=== PATIENT | female | born 1935 | race Caucasian/White ===

== ENCOUNTER 2016-08-03 05:13 | Inpatient (IN) ==
[2016-08-03] MEDS ORDERED: NS 1,000 ML IV ONE (05:18)
[2016-08-03] MEDS ORDERED: ZOFRAN IV ONE (05:18)
[2016-08-03] MEDS ORDERED: DILAUDID IV ONE (05:18)
--- NOTE | 2016-08-03 05:53 | PROVIDER DOCUMENTATION ---
HPI-General Adult - General Chief Complaint: Extremity Injury Stated Complaint: left hip injury/possible fx Time Seen by Provider: 08/03/16 05:25 Source: EMS Unable to obtain history due to:: altered Allergies/Adverse Reactions: Patient Allergies Allergy/AdvReac Type Severity Reaction Status Date / Time codeine Allergy RASH Verified 07/31/16 22:47 donepezil HCl * Allergy Unknown Verified 07/31/16 22:47 [From Aricept] gatifloxacin [From Tequin] Allergy Unknown Verified 07/31/16 22:47 Latex, Natural Rubber Allergy Unknown Verified 07/31/16 22:47 metformin Allergy DIARRHEA Verified 07/31/16 22:47 Sulfa (Sulfonamide Allergy Unknown Verified 07/31/16 22:47 Antibiotics) Home Medications: Home Medication List Medication Instructions Recorded Confirmed Last Taken Type Beclomethasone Dipr 80 Mcg INH 1 puff INH BID #1 inhaler 07/29/16 08/03/1608/02 Rx [Qvar 80 Microgm Inhaler] Divalproex [Depakote Sprinkle] 125 mg PO QHS #30 capsule 07/29/16 08/03/1608/02 Rx Docusate Sodium [Colace Liquid] 100 mg PO DAILY #30 udc 07/29/16 08/03/16 Rx Glipizide 10 mg PO BID #60 tablet 07/29/16 08/03/16 08/02/16 Rx Lorazepam [Ativan] 0.25 mg PO TID@0700,1300,1900 #45 07/29/16 08/03/16 08/02/16 Rx tablet Melatonin 5 mg PO QHS #30 tablet 07/29/16 08/03/16 08/02/16 Rx Memantine [Namenda] 5 mg PO DAILY #30 tablet 07/29/16 08/03/16 08/02/16 Rx Olanzapine Rapdis [Zyprexa Zydis] 2.5 mg PO QHS #30 tablet 07/29/16 08/03/16 Rx - History of Present Illness -Gen Adult Location of Pain/Injury: reports: lower extremity (fell at [facility] hurting left hip) Pain Radiation: reports: legs (lower) Quality of Pain: reports: none Severity: reports: mild Onset/Duration: reports: unsure Timing: reports: still present Context/Activities at Onset: reports: light activity Modifying Factors: improves with: nothing Associated Symptoms: reports: denies symptoms Similar Symptoms Previously?: Yes (fell 4 days ago) Recently seen or treated by another doctor?: Yes (treated 4 days ago for fall) HPI Comments: fell at [facility] hours ago. Alzheimers dementia Review of Systems - Adult - REVIEW OF SYSTEMS - ADULT ROS:: limited per condition Constitutional: reports: no symptoms reported Eyes: reports: no symptoms reported Ears, Nose, Mouth & Throat: reports: no symptoms reported Cardiovascular: reports: no symptoms reported Respiratory: reports: no symptoms reported Gastrointestinal: reports: no symptoms reported Genitourinary: reports: no symptoms reported Musculoskeletal: reports: no symptoms reported Integumentary: reports: no symptoms reported Neurological: reports: no symptoms reported (history of severe Alzheimers) Psychiatric: reports: no symptoms reported, see HPI Endocrine: reports: no symptoms reported Hematologic/Lymphatic: reports: no symptoms reported Allergic/Immunologic: reports: no symptoms reported All Other Systems: Reviewed and Negative Past History - Adult - PAST MEDICAL HISTORY-ADULT Review of Records: reports: Old Records Reviewed, Nursing Assessment Review, Medications Reviewed, Social history reviewed & non-contributory. Major Childhood Illnesses: reports: denies history Cardiovascular: reports: denies history Respiratory: reports: denies history Gastrointestinal: reports: denies history Obstetrical/Gynecological: reports: denies history Genitourinary: reports: denies history Musculoskeletal: reports: denies history Neurological: reports: denies history Endocrine/Immune: reports: Diabetes Other Conditions: reports: denies history - IMMUNIZATION STATUS Childhood Immunizations: See Nurse Assessment Flu Vaccine: See Nurse Assessment - FAMILY HISTORY Family History: reviewed, not pertinent Physical Exam-General - PHYSICAL EXAM-ADULT Initial Vital Signs Reviewed: Yes - CONSTITUTIONAL General Appearance: appears well - EYES Eyes: PERRL/EOMI - HEAD, EARS, NOSE, MOUTH & THROAT HENMT: normocephalic/atraumatic - NECK Neck: non-tender - RESPIRATORY Respiratory: chest non-tender - CARDIOVASCULAR Cardiovascular: normal peripheral pulses - GASTROINTESTINAL (ABDOMEN) Abdominal Exam: normal bowel sounds - LYMPHATIC Lymphatic: no adenopathy - MUSCULOSKELETAL Back Exam: other (deformity of the left hip with severe pain upon inversion of everted left foot) Extremity: normal range of motion - SKIN Integumentary: normal color - NEUROLOGIC Neurologic: meat molder II-XII nml as tested - PSYCHIATRIC Psych/Mental Status: disoriented x 3, depressed affect (Alzheimers) Progress - PLAN OF CARE/RESULTS Progress/Plan/Lab Results: Vital Signs - 8 hr 08/03/16 05:19 Temperature 98.3 F Pulse Rate 77 Respiratory Rate 16 Blood Pressure 152/71 O2 Sat by Pulse Oximetry 100 Orders Category Date Time Status Sen Care ROUTINE Care 08/03/16 05:19 Active Sne Cath Insertion ORDERED Care 08/03/16 05:41 Active CHEST-PORTABLE [RAD] Stat Exams 08/03/16 05:19 Taken XRAY PELVIS W/HIP 2-3VW LT [RAD] Stat Exams 08/03/16 05:31 Ordered CBC WITH DIFF [HEME] Stat Lab 08/03/16 05:20 Uncollected CMP [COMPREHENSIVE METABOLIC PANEL] [CHEM] Stat Lab 08/03/16 05:20 Uncollected UA NIMS W/REFLEX CULT [URINALYSIS] Stat Lab 08/03/16 05:20 Uncollected 0.9% Sodium Chloride Inj [Ns] 1,000 ml Med 08/03/16 05:18 Active IV 999 mls/hr Hydromorphone [Dilaudid] Med 08/03/16 05:18 Discontinued 1 mg IV NOW ONE Ondansetron [Zofran] Med 08/03/16 05:18 Discontinued 4 mg IV NOW ONE EKG [EKG] Stat Ther 08/03/16 05:21 Ordered Result Diagrams: 08/03/16 05:56 08/03/16 05:56 Departure - Departure Time of Disposition Decision: 06:56 DIAGNOSIS: Hip fracture, left Disposition: ADMITTED INPATIENT 09 Certified Medical Emergency: Emergent Condition: Stable Referrals and Follow-Ups: None,PCP [Primary Care Provider] - Attestation - Physician/ TARYN Attestation Patient care was provided by Advanced Practice Provider:: Yes Advanced Practice Provider documentation review:: The Mid-level provider documentation, treatment plan and medical decision making was reviewed by the physician who agrees with all treatment and medical decision making by the MLP. The physician spent face to face time with patient:: Yes Advanced Practice Provider documentation review:: The physician spent face to face time with this patient and agrees with all MLP documentation, treatment, and medical decision making by the MLP. See provider notes for further information.
[2016-08-03 06:09] LABS: MANUAL DIFF NEEDED? NO
[2016-08-03 06:15] LABS: EOS# 0.06 X1000 (0.0-0.7); EOS% 0.9 % (0.0-10.0); MCV 82.3 FL (81-99)
[2016-08-03 06:26] LABS: BASO% 0.9 % (0.0-0.8); HEMATOCRIT 35.8 % (37.0-47.0); HEMOGLOBIN 11.7 g/dL (12.0-16.0); LYMPH# 0.91 X1000 (1.2-3.4); LYMPH% 13.4 % (20.5-51.1); MCH 26.9 PG (27-31); MCHC 32.7 g/dL (33-37); MONO% 7.3 % (1.7-9.3); MPV 11.7 FL (7.4-10.4); NEUT% 77.5 % (42.2-75.2); PLT 199 X1000 (130-400); RBC 4.35 XMIL (4.2-5.4)
[2016-08-03 06:27] LABS: URINE CULTURE NEEDED? NO; URINE MICRO REVIEW NEEDED? NO; URINE SOURCE CATH
--- NOTE | 2016-08-03 06:37 | EKG Report ---
Test Performed on : 08/03/2016 05:39:21 AM Test Reason : PREOP Blood Pressure : / mmHG Vent. Rate : 077 BPM Atrial Rate : 077 BPM P-R Int : 146 ms QRS Dur : 074 ms QT Int : 364 ms P-R-T Axes : 091 -26 -04 degrees QTc Int : 411 ms Sinus rhythm. with premature supraventricular complexes. Septal infarct , age undetermined Abnormal ECG When compared with ECG of 24-JUN-2016 19:25, premature supraventricular complexes. are now present Septal infarct is now present T wave inversion now evident in Inferior leads Unconfirmed Result
[2016-08-03 06:39] LABS: BILIRUBIN URINE NEGATIVE (NEGATIVE); BLOOD URINE TRACE (NEGATIVE); COLOR YELLOW; GLUCOSE URINE 100 mg/dL (NEGATIVE); LEUKOCYTES URINE NEGATIVE (NEGATIVE); NITRITE URINE NEGATIVE (NEGATIVE); PH URINE 5.5; PROTEIN URINE TRACE mg/dL (NEGATIVE); SP GRAVITY URINE 1.024; TURBIDITY URINE CLEAR (CLEAR); UROBILINOGEN URINE NORMAL (NORMAL)
[2016-08-03 06:41] LABS: UR EPITHELIAL CELLS <10 /HPF (<10); URINE BACTERIA NEGATIVE /HPF; URINE RBC <10 /HPF (<10); URINE WBC <10 /HPF (<10)
[2016-08-03 06:44] LABS: AGAP 11; ALBUMIN 3.6 g/dL (3.5-5.0); ALKALINE PHOSPHATASE 70 U/L (32-104); BUN 18 mg/dL (8-22); CHLORIDE 104 mmol/L (98-107); COSMO 291; GOT 17 U/L (10-30); GPT 11 U/L (10-36); POTASSIUM 4.6 mmol/L (3.5-5.1); SODIUM 142 mmol/L (136-145); TCO2 27 mmol/L (25-35); TOTAL BILIRUBIN 0.37 mg/dL (0.20-1.00); TOTAL PROTEIN 6.9 g/dL (6.3-8.3)
--- NOTE | 2016-08-03 08:30 | Diag Imaging Result Document ---
PROCEDURE NAME: CHEST-PORTABLE - 08/03/2016 PORTABLE CHEST: COMPARISON: 07/31/2016. FINDINGS: The lungs are well expanded. The heart is not enlarged. The vessels are not distended. No pneumonia. No pleural effusions identified. I believe there is a granuloma in the lower right lung. There has been prior surgery to the lower neck. IMPRESSION: Stable chest.
--- NOTE | 2016-08-03 08:31 | Diag Imaging Result Document ---
PROCEDURE NAME: XRAY PELVIS W/HIP 2-3VW LT - 08/03/2016 PELVIS AND LEFT HIP, THREE VIEWS: FINDINGS: There is an intertrochanteric fracture to the left femur. The femoral head remains within its acetabulum. The femoral shaft is rotated and superiorly placed. IMPRESSION: Intertrochanteric fracture to the left hip.
[2016-08-03] MEDS ORDERED: SODIUM CHLORIDE 0.9% INJ PRN (08:33)
[2016-08-03] MEDS ORDERED: ZOFRAN IV PRN ×2 (08:33→19:27)
[2016-08-03] MEDS ORDERED: PHENERGAN IV PRN (08:33)
[2016-08-03] MEDS ORDERED: TYLENOL PO PRN (08:33)
[2016-08-03 08:52] LABS: INR 1.18; PROTIME 12.5 Seconds (9.2-11.7); PTT 23.6 Seconds (22.0-36.0)
[2016-08-03] MEDS ORDERED: COLACE LIQUID PO SCH (09:00)
[2016-08-03] MEDS: QVAR 80 MICROGM INHALER INH SCH ×2 (09:00→19:52)
[2016-08-03] MEDS ORDERED: DILAUDID IV PRN (12:32)
[2016-08-03] MEDS: NAMENDA PO SCH (12:36)
[2016-08-03] MEDS: NS 1,000 ML IV SCH ×3 (12:36→22:47)
[2016-08-03] MEDS: PRILOSEC PO SCH (12:37)
--- NOTE | 2016-08-03 13:23 | HISTORY AND PHYSICAL ---
This is an 81-year-old, who [place] [facility] [place] She has dementia for the last 6 years and then recently I think went to [facility]. She has fallen a couple times and at this time fell and has severe intertrochanteric hip fracture on the left. I saw where I put her in June of this year. Hemoglobin was down to 11, hematocrit was 36. She came in from a fall at that time and hit her head, arm and leg. The left elbow showed a little bit of fat pad sign. CT of the head was normal at that time. PAST MEDICAL HISTORY: 1. Diabetes mellitus type 2. 2. Dementia with severe sundowning. 3. Vitamin D deficiency. ALLERGIES: 1. Aricept. 2. Codeine. 3. Metformin. 4. Sulfa. 5. Tequin. 6. Other allergies to latex and natural rubber. FAMILY HISTORY: Her had dementia as well. SOCIAL HISTORY: Negative for alcohol or tobacco. REVIEW OF SYSTEMS: She has been at [facility] recently. It is a struggle to get her to eat and no sign of any definite pain. She has not been walking much or being very active since she got out of [place]. Before she went to [place] she was walking around and ambulating. PHYSICAL EXAMINATION: VITAL SIGNS: Temperature 98.3 degrees, pulse 77, respirations 16, blood pressure 123/53, pupils are equal and round. CVP is less than 6 cm. LUNGS: Clear in all lung stafford. CARDIOVASCULAR: Regular rate without murmur or S3. ABDOMEN: Soft. SKIN: Warm and dry. PHYSICAL EXAMINATION: VITAL SIGNS: Weight 100 pounds. Height 5 feet 4 inches. LUNGS: Are clear in all lung stafford. CARDIOVASCULAR: Regular rhythm and rate without murmur or S3. Monitor shows sinus rhythm. ABDOMEN: Soft. SKIN: Is warm and dry. LABORATORY: White blood cell count 6810, hematocrit 35, platelet count 199,000, sodium 142, potassium 4.6, chloride 104, bicarb 27, BUN 18, creatinine 0.8, liver functions unremarkable. Albumin 3.6, urinalysis unremarkable. MEDICATIONS AT HOME: 1. She was taking Qvar inhaler 80 mcg 1 puff b.i.d. 2. Depakote 125 mg at bedtime. 3. Docusate sodium 100 mg daily. 4. Glipizide 10 mg b.i.d. 5. Lorazepam 0.25 mg t.i.d. 6. Melatonin 5 mg at bedtime. 7. Namenda 5 mg daily. 8. Zyprexa 2.5 mg at bedtime. ASSESSMENT AND PLAN: 1. Left intertrochanteric hip fracture. This appears to be a severe break. Dr. Herrera consulted. I think we are going to have to probably do some fixation just for pain control. Will discuss with Dr. Herrera. I have discussed with family and the son and I think there is a potential for surgery. We will discuss with Dr. Herrera. 2. Diabetes mellitus type 2. We will check sugars. I am going to hold her hypoglycemics and we will monitor blood sugars. 3. Dementia with . 4. Looks like a poor protein calorie intake and so we will watch this as well with general nutrition. She has a Sen catheter in. LABORATORY: White count 6810, hematocrit 35, platelet count 199,000, sodium 142, potassium 4.6, chloride 104, bicarb 27, BUN 18, creatinine 0.8, blood sugar was 212. Liver enzymes AST 17, ALT 11, alkaline phosphatase was 70, albumin 3.6. cc: Frank Tran MD
[2016-08-03] MEDS: ATIVAN PO SCH ×2 (13:27→22:46)
[2016-08-03] MEDS ORDERED: CLAVE SECONDARY SET 11953 ONE (15:37)
[2016-08-03] MEDS ORDERED: KEFZOL 1 GM/D5W 1 GM/50 ML IVPB ONE (15:37)
[2016-08-03] MEDS ORDERED: FENTANYL ONE (18:02)
[2016-08-03] MEDS ORDERED: DIPRIVAN 1% ONE (18:03)
--- NOTE | 2016-08-03 18:25 | CONSULTATION ---
DATE OF CONSULTATION: 08/03/2016 CHIEF COMPLAINT: Left hip pain. HISTORY OF PRESENT ILLNESS: Ms. Pierce is an 81-year-old female who is experiencing left hip pain status post fall at a [facility] this morning. She was brought to the Emergency Room for evaluation, where radiographic findings revealed a left intertrochanteric fracture, and we were consulted for further evaluation. ALLERGIES: Codeine, donepezil, gatifloxacin, latex, metformin, and sulfa. PAST MEDICAL HISTORY: History was difficult to obtain from the patient because she was not very responsive, but family reports she has Alzheimer's dementia. SOCIAL HISTORY: The patient is a resident of a [facility]. CURRENT MEDICATIONS: 1. Beclomethasone 80 mcg inhaler one puff inhaled b.i.d. 2. Depakote 125 mg p.o. at bedtime. 3. Colace 100 mg p.o. daily. 4. Glipizide 10 mg p.o. b.i.d. 5. Lorazepam 0.25 mg p.o. t.i.d. 6. Melatonin 5 mg p.o. at bedtime. 7. Namenda 5 mg p.o. daily. 8. Zyprexa 2.5 mg p.o. at bedtime REVIEW OF SYSTEMS: It was difficult to obtain history from the patient, but a 10-point review of systems was reviewed with family members and all was negative except for what is present in the HPI. PHYSICAL EXAMINATION: General: The patient is resting comfortably at bedside but is unable to answer all questions fully. HEENT: Head is normocephalic. Nares are patent. Throat without exudate. Neck: Supple. Heart: Regular rate and rhythm. Lungs: Clear to auscultation bilaterally. Abdomen: Round. It is nontender. Neurological: She discerns soft touch to the affected extremities. Gross motor function is intact. Musculoskeletal: Left hip: She does have some deformity of the left hip. I do not appreciate any ecchymosis. Her leg appears to be externally rotated. Neurovascular status is intact with good peripheral pulses. IMPRESSION: Left intertrochanteric hip fracture. PLAN: Left long trochanteric fixation nail. The risks and benefits of surgery were explained to the patient and to family, including risk of anesthesia; ; bleeding; infection; damage to tendons, ligaments, nerves, blood vessels. Possibility of bleeding, blood clots, and other imponderables were discussed with the patient and her family, and she wishes to proceed with operative management at this time. Dictated by MARIA DEL CARMEN Campbell for iSlvano Churchill MD cc: MARIA DEL CARMEN Campbell MD
[2016-08-03] MEDS ORDERED: HALDOL IV PRN (19:27)
[2016-08-03] MEDS ORDERED: OXY IR PO PRN (19:27)
[2016-08-03] MEDS ORDERED: MILK OF MAGNESIA PO PRN (19:27)
--- NOTE | 2016-08-03 20:26 | OPERATIVE NOTE ---
PROCEDURE DATE: 08/03/2016 PREOPERATIVE DIAGNOSIS: Left intertrochanteric hip fracture. POSTOP DIAGNOSIS: Left intertrochanteric hip fracture. PROCEDURE PERFORMED: Left trochanteric fixation nail fixation of the hip. SURGEON: Natan Herrera MD. CRANKSHAFT STRAIGHTENER: Domo Gallardo. ANESTHESIA: General. COMPLICATION: None. PROCEDURE IN DETAIL: 81-year-old female presents for intertrochanteric fixation of the left hip. Risks, benefits and no guarantees were noted and she is willing to proceed. She was taken the operating room and satisfactory anesthesia obtained. She is transferred to the fracture table and the left hip prepped and draped in usual sterile fashion. A time-out was taken to confirm operative site, procedure, and patient. An incision was made along the lateral aspect of the thigh roughly 1 inch above the lesser trochanter and dissection carried down to the tip of the trochanter. Under multiplanar image guidance, a guide pin was placed through the tip of the trochanter and down the intramedullary canal. The Rydal table was used to place just gentle longitudinal traction and internal rotation to reduce the hip near anatomically. Over the guidewire an entry reamer was used and then a ball-tip guidewire inserted down the shaft. The shaft was reamed with a 12 mm reamer. A Synthes TFN 340 left nail was then inserted over the guidewire and guidewire removed. With the fracture reduced an accessory lateral portal was made and the helical blade advanced through fracture. This was initially placed with a guidewire and confirmation of the guidewire placement with the C-arm verified prior to placement of a 90 mm helical blade. After placement of this, the leg was ensured for proper rotation roughly 5 degrees to 10 degrees of external rotation and a distal interlocking screw placed through the dynamic slot using the C-arm as perfect [place] technique. Additional lateral incision made for placement of the screw and a 44 length screw placed. The C-arm was used to verify accurate fracture reduction and hardware placement. The wounds were irrigated and closed in layers with 2-0 Vicryl and skin jaye. Sterile dressings completed the closure and the patient was recovered from anesthesia and transferred to the recovery room in stable condition. No intraoperative complications were noted. Instrument count and sponge count was correct at the time of closure. cc: Bruno Herrera MD
[2016-08-03] MEDS: DEPAKOTE SPRINKLE PO SCH (22:45)
[2016-08-03] MEDS: COLACE LIQUID PO SCH (22:46)
[2016-08-03] MEDS: TYLENOL PO SCH (22:46)
[2016-08-03] MEDS: MELATONIN PO SCH (22:47)
[2016-08-03] MEDS: MORPHINE IV PRN (22:47)
[2016-08-03] MEDS: ZYPREXA ZYDIS PO SCH (22:47)
[2016-08-04] MEDS: KEFZOL 1 GM/D5W 1 GM/50 ML IVPB IV SCH ×2 (00:19→08:53)
[2016-08-04] MEDS: TYLENOL PO SCH ×3 (06:08→20:42)
[2016-08-04] MEDS: ATIVAN PO SCH ×3 (06:08→20:42)
[2016-08-04] MEDS: MORPHINE IV PRN ×5 (07:28→22:38)
[2016-08-04] MEDS: QVAR 80 MICROGM INHALER INH SCH ×2 (07:37→19:35)
[2016-08-04] MEDS: FERROUS SULFATE PO SCH (08:53)
[2016-08-04] MEDS: NAMENDA PO SCH (08:53)
[2016-08-04] MEDS: PRILOSEC PO SCH (08:53)
[2016-08-04] MEDS: NS 1,000 ML IV SCH ×2 (08:58→19:05)
[2016-08-04] MEDS: PERIDEX MT SCH ×2 (09:00→20:41)
[2016-08-04] MEDS ORDERED: NEO-SYNEPHRINE ONE (09:17)
[2016-08-04] MEDS ORDERED: ANESTHESIA PB SET 88 IN 5742 ONE (09:17)
[2016-08-04] MEDS ORDERED: SODIUM CHLORIDE 0.9% 10 ML ONE (09:17)
[2016-08-04] MEDS ORDERED: LR 1,000 ML ONE (09:17)
--- NOTE | 2016-08-04 10:10 | PROGRESS NOTE ---
DATE: 08/04/2016 SUBJECTIVE: Ms. Pierce is an 81-year-old, , elderly female who is resting comfortably in bed, although does complain of some left hip pain. She does have confusion secondary to her dementia. No other complaints. She has not eaten her breakfast this morning. May need assistance with that. She has had surgery of the left hip. OBJECTIVE: Vital Signs: Temperature 98.4 degrees, heart rate 72, respiratory rate 16, blood pressure 135/55, O2 saturation 99% on 2 L nasal cannula. General: Ms. Pierce is an 81-year-old, elderly female in no acute distress. Cardiovascular: S1, S2. Regular rate and rhythm. No rubs, gallops, or murmurs. Pulmonary: Clear to auscultate bilateral breath sounds. No accessory muscle use or work of breathing noted. GI: Soft, nontender, nondistended. Positive bowel sounds x4. Laboratory Data: None for today. New orders for tomorrow. ASSESSMENT AND PLAN: 1. Left intertrochanteric hip fracture, now status post left trochanteric fixation, nail fixation of the hip by Dr. Herrera. Tolerated surgery well. Will continue with physical therapy. 2. Diabetes mellitus type 2. Pattern blood glucoses, sliding scale insulin. 3. Dementia, stable. 4. Protein calorie malnutrition. She has a diet ordered. She will likely need assistance with this. 5. Disposition. Will need rehabilitation. 6. Resuscitation status, ps-izy-[id number] level 1. 7. She has been a resident of [facility] in the past and most recently [facility]. Dictated by RHIANNON Ray for Frank Tran MD cc: RHIANNON Ray MD
[2016-08-04 10:15] LABS: MANUAL DIFF NEEDED? NO
[2016-08-04 10:39] LABS: BASO% 0.5 % (0.0-0.8); HEMOGLOBIN 9.1 g/dL (12.0-16.0); LYMPH# 0.91 X1000 (1.2-3.4); LYMPH% 15.4 % (20.5-51.1); MCH 27.2 PG (27-31); MCHC 32.5 g/dL (33-37); MCV 83.8 FL (81-99); MONO% 15.2 % (1.7-9.3); MPV 10.8 FL (7.4-10.4); NEUT% 68.9 % (42.2-75.2); PLT 159 X1000 (130-400); RBC 3.34 XMIL (4.2-5.4)
[2016-08-04 11:01] LABS: AGAP 11; ALBUMIN 3.2 g/dL (3.5-5.0); ALKALINE PHOSPHATASE 61 U/L (32-104); BUN 13 mg/dL (8-22); CALCIUM 8.5 mg/dL (8.8-10.2); CHLORIDE 103 mmol/L (98-107); COSMO 289; GOT 23 U/L (10-30); GPT 12 U/L (10-36); MAGNESIUM 1.5 mg/dL (1.5-2.7); POTASSIUM 4.6 mmol/L (3.5-5.1); SODIUM 141 mmol/L (136-145); TCO2 27 mmol/L (25-35); TOTAL BILIRUBIN 0.54 mg/dL (0.20-1.00)
[2016-08-04] MEDS: HUMULIN R SUBQ SCH ×3 (11:32→20:43)
[2016-08-04] MEDS: ZYPREXA ZYDIS PO SCH (20:42)
[2016-08-04] MEDS: DEPAKOTE SPRINKLE PO SCH (20:42)
[2016-08-04] MEDS: MELATONIN PO SCH (20:42)
[2016-08-04] MEDS: COLACE LIQUID PO SCH (20:47)
[2016-08-05] MEDS: TYLENOL PO SCH ×3 (04:12→21:14)
[2016-08-05] MEDS: HUMULIN R SUBQ SCH ×4 (06:37→21:19)
[2016-08-05] MEDS: MORPHINE IV PRN ×2 (08:07→10:15)
[2016-08-05] MEDS: NS 1,000 ML IV SCH ×2 (09:12→21:15)
[2016-08-05] MEDS: QVAR 80 MICROGM INHALER INH SCH ×2 (09:25→19:20)
[2016-08-05] MEDS: PERIDEX MT SCH ×2 (10:22→21:14)
[2016-08-05] MEDS: NAMENDA PO SCH (10:22)
[2016-08-05] MEDS: ATIVAN PO SCH ×3 (10:26→21:15)
[2016-08-05] MEDS: FERROUS SULFATE PO SCH (10:26)
[2016-08-05] MEDS: PRILOSEC PO SCH (10:27)
--- NOTE | 2016-08-05 10:35 | PROGRESS NOTE ---
DATE: 08/05/2016 SUBJECTIVE: Ms. Pierce says she is very tired and she just wants to sleep. She remains afebrile. PHYSICAL EXAMINATION: Vital Signs: Temperature 98.2 degrees, pulse 90, respirations 17, blood pressure 123/67. HEENT: The pupils were equal. Lungs: Clear in all lung stafford. Cardiovascular Examination: Regular rhythm and rate. Abdomen: Soft. Skin: Is warm and dry. Is and Os: Urine output was close to 1500 mL. LAB: Reviewed from yesterday. Hematocrit was 28 and hemoglobin 9.1. Today, hematocrit 25, hemoglobin 8. Blood sugars 264, 79, 133, 128. ASSESSMENT AND PLAN: 1. Left intertrochanteric hip fracture, now status post a left trochanteric nail fixation per Dr. Herrera. Tolerated surgery well. Continue her physical therapy. 2. Diabetes mellitus type 2. Follow pattern sugars. 3. History of dementia. 4. Protein calorie malnutrition. Encourage oral intake. 5. Discharge planning. We will ask social service to help and decide on what we want to do. cc: Frank Tran MD
[2016-08-05] MEDS: COLACE LIQUID PO SCH (21:14)
[2016-08-05] MEDS: MELATONIN PO SCH (21:14)
[2016-08-05] MEDS: DEPAKOTE SPRINKLE PO SCH (21:15)
[2016-08-05] MEDS: ZYPREXA ZYDIS PO SCH (21:15)
[2016-08-06] MEDS: TYLENOL PO SCH ×2 (05:06→14:58)
[2016-08-06 06:38] LABS: HEMATOCRIT 23.5 % (37.0-47.0); HEMOGLOBIN 7.5 g/dL (12.0-16.0)
[2016-08-06] MEDS: HUMULIN R SUBQ SCH ×2 (07:04→14:57)
[2016-08-06] MEDS: ATIVAN PO SCH ×2 (07:04→14:58)
[2016-08-06] MEDS: FERROUS SULFATE PO SCH (10:01)
[2016-08-06] MEDS: PERIDEX MT SCH (10:02)
[2016-08-06] MEDS: NAMENDA PO SCH (10:02)
[2016-08-06] MEDS: PRILOSEC PO SCH (10:02)
[2016-08-06] MEDS: NS 1,000 ML IV SCH (10:13)
[2016-08-06 11:11] VITALS: BP 155/59
[2016-08-06] MEDS: QVAR 80 MICROGM INHALER INH SCH (11:24)
--- NOTE | 2016-08-06 12:27 | DISCHARGE SUMMARY ---
ADMISSION DATE: 08/03/2016 DISCHARGE DATE: 08/06/2016 ADMISSION DIAGNOSES: 1. Left intertrochanteric hip fracture. 2. Diabetes mellitus, type 2. 3. Dementia with sundowning. 4. Protein calorie malnutrition. DISCHARGE DIAGNOSES: 1. Left intertrochanteric hip fracture status post left trochanteric nail fixation per Dr. Herrera. 2. Diabetes mellitus type 2, stable. 3. Dementia, stable. 4. Protein calorie malnutrition, improving. CONSULTATIONS: Bruno Herrera MD with Orthopedics. PROCEDURES: On 08/03/[address] Herrera underwent left trochanteric nail fixation of the hip secondary to left intertrochanteric hip fracture. HOSPITAL COURSE: Darleen Pierce is an 81-year-old, female with a significant history of dementia who is here from [facility]. Apparently she had been falling a few times and this time fell and had a severe intertrochanteric hip fracture on the left. At that time Dr. Herrera was consulted and she underwent surgical repair with the trochanteric fixation nail. Patient remained confused throughout stay but tolerated the surgery. It is now deemed appropriate she is okay for rehabilitation again at [facility]. Laboratory data remained somewhat stable throughout her hospital course. Vital signs also remained stable. LAB DATA: Hemoglobin 7.5, hematocrit 23.5. No recent chemistries. Glucose remained in the low 100s. IMAGING DATA: 08/03/2016 chest x-ray stable. Hip and pelvic x-ray revealed intertrochanteric fracture of left hip. EKG revealed sinus rhythm with PVCs, rate 77, QTc of 411. DISCHARGE DIET: Regular. DISCHARGE ACTIVITY: She will go to rehab per ortho recommendations. The patient walking with PT. Keep partial weightbearing with walker. DISCHARGE VITAL SIGNS: Temperature 98.6 degrees, heart rate 98, respiratory rate 20, blood pressure 123/66, O2 saturation 92% on room air. RESUSCITATION STATUS: DNR level 1. DISPOSITION: [facility] rehab. Follow up with Dr. Herrera in office in 2-4 weeks. MEDICATIONS: Beclomethasone 80 mcg 1 puff twice daily, Depakote Sprinkles 125 mg p.o. nightly, Colace 200 mg p.o. nightly, ferrous sulfate 325 mg p.o. daily, Ativan 0.25 mg p.o. 3 times a day as needed for anxiety, milk of magnesia 30 mL p.o. daily p.r.n. constipation, melatonin 5 mg p.o. nightly, Namenda 5 mg p.o. daily, Zyprexa 2.5 mg p.o. nightly, Prilosec 40 mg p.o. daily, Tylenol 650 mg p.o. every 4 hours p.r.n., glipizide 10 mg p.o. twice daily. Dictated by RHIANNON Ray for Frank Tran MD cc: RHIANNON Ray MD
--- NOTE | 2016-08-06 13:37 | PROGRESS NOTE ---
DATE: 08/05/2016 SUBJECTIVE: Ms. Pierce is awake and alert. The Sen catheter is out. She is voiding okay. No complaints of constipation. OBJECTIVE: Vital Signs: Temperature is 98.6, pulse 98, respirations 20, and blood pressure 123/66. HEENT: Pupils are equal and round. Respiratory: Lungs are clear in all lung stafford. Cardiovascular: Regular rhythm and rate without murmur or S3. LABORATORY DATA: Urine output was 1300 mL. Blood sugar was 128, 160, and 122. Hematocrit is stable at 23. Hemoglobin is 7.5. ASSESSMENT AND PLAN: 1. Left intertrochanteric hip fracture status-post nail fixation per Dr. Herrera. Doing well. Need to pursue rehab. 2. Diabetes mellitus type 2. 3. Dementia. 4. Protein calorie malnutrition. Encourage p.o. intake. 5. Sen catheter is out. She seems to be voiding okay. Her orders were reviewed. She is on Oxy IR 5 mg every 3 hours. She is on olanzapine 2.5 mg at bedtime, Namenda 5 mg daily, melatonin 5 mg at bedtime, docusate 200 mg day, ferrous sulfate 325 mg daily, and Depakote 125 mg at bedtime. Normal saline is running at 83 mL/hr. cc: Frank Tran MD
== END 2016-08-06 15:20 ==
LOC: ED 05:13 → EDIPHOLD 08:15 → SUATTDRO 08:15 → 4N 10:40
PROVIDERS: ATTEND Emergency Medicine

== ENCOUNTER 2016-10-01 21:02 | Inpatient (IN) ==
[2016-10-01] MEDS ORDERED: DILAUDID IV ONE (21:18)
[2016-10-01] MEDS ORDERED: ZOFRAN IV ONE (21:18)
[2016-10-01 21:53] LABS: MANUAL DIFF NEEDED? NO
--- NOTE | 2016-10-01 21:57 | Diag Imaging Result Doc PS360 ---
CHEST-1 VIEW - 10/01/2016 INDICATION: pre-op TECHNIQUE: COMPARISON: 08/03/2016 FINDINGS: Stable hyperexpanded lungs. No focal infiltrates, pneumothorax, or pleural effusion. Heart size remains normal. IMPRESSION: No acute disease or change from prior. Electronically signed by Jose Martin Christian 10/01/2016 9:55 PM
[2016-10-01 22:00] LABS: BASO% 0.2 % (0.0-0.8); EOS# 0.06 X1000 (0.0-0.7); EOS% 0.7 % (0.0-10.0); HEMATOCRIT 33.6 % (37.0-47.0); HEMOGLOBIN 10.5 g/dL (12.0-16.0); IMM GRAN# 0.02 X1000 (0.0-0.04); IMM GRAN% 0.2 % (0.0-0.5); LYMPH# 1.05 X1000 (1.2-3.4); LYMPH% 12.3 % (20.5-51.1); MCH 26.9 PG (27-31); MCHC 31.3 g/dL (33-37); MCV 85.9 FL (81-99); MONO# 0.33 X1000 (0.11-0.59); MONO% 3.9 % (1.7-9.3); MPV 11.6 FL (7.4-10.4); NEUT% 82.7 % (42.2-75.2); PLT 233 X1000 (130-400); RBC 3.91 XMIL (4.2-5.4)
[2016-10-01 22:07] LABS: INR 1.07; PROTIME 11.3 Seconds (9.2-11.7); PTT 26.1 Seconds (22.0-36.0)
[2016-10-01 22:08] LABS: URINE MICRO REVIEW NEEDED? NO; URINE SOURCE CATH
[2016-10-01 22:10] LABS: COLOR YELLOW; TURBIDITY URINE CLEAR (CLEAR)
[2016-10-01 22:12] LABS: BILIRUBIN URINE NEGATIVE (NEGATIVE); BLOOD URINE MODERATE (NEGATIVE); GLUCOSE URINE 200 mg/dL (NEGATIVE); NITRITE URINE POSITIVE (NEGATIVE); PROTEIN URINE 100 mg/dL (NEGATIVE); SP GRAVITY URINE > 1.030; UROBILINOGEN URINE NORMAL (NORMAL)
[2016-10-01 22:13] LABS: LEUKOCYTES URINE TRACE (NEGATIVE)
[2016-10-01 22:15] LABS: UR EPITHELIAL CELLS <10 /HPF (<10); URINE BACTERIA 4+ /HPF; URINE RBC TNTC /HPF (<10); URINE WBC TNTC /HPF (<10)
[2016-10-01 22:22] LABS: AGAP 11; ALBUMIN 3.5 g/dL (3.5-5.0); ALKALINE PHOSPHATASE 99 U/L (32-104); BUN 19 mg/dL (8-22); CALCIUM 8.9 mg/dL (8.8-10.2); CHLORIDE 101 mmol/L (98-107); COSMO 293; GOT 14 U/L (10-30); GPT 7 U/L (10-36); POTASSIUM 4.5 mmol/L (3.5-5.1); SODIUM 141 mmol/L (136-145); TCO2 29 mmol/L (25-35); TOTAL BILIRUBIN 0.25 mg/dL (0.20-1.00); TOTAL PROTEIN 6.9 g/dL (6.3-8.3)
--- NOTE | 2016-10-01 23:10 | PROVIDER DOCUMENTATION ---
This chart was entered by Charles Mays Scribe, acting as scribe for Nickolas Moncada MD. HPI-Musculoskeletal Pain/Inj - GENERAL Chief Complaint: Hip Injury Stated Complaint: HIP PAIN Time Seen by Provider: 10/01/16 21:10 Source: patient, family - HX OF PRESENT ILLNESS-MUSKULOSKELTAL Nature of Presenting Problem: Pt is a 81 yowf who [facility] ER [facility] from [facility] with CC of possible fall, hip pain. Pt with hx of dementia is poor historian, daughter at bedside reports pt had surgery on her left hip x2 months ago, but tonight pt is complaining of right hip pain. Quality of Pain: reports: cramping, throbbing Severity in ED: mild Onset/Duration: unsure, 1-3 hours ago Timing: still present Any recent injury?: Yes Locality of Occurance: Other ([facility]) Similar Symptoms Previously?: Yes Recently seen or treated by another doctor?: Yes - FALL INJURY Location of Pain/Injury: reports: lower extremity (RLE (hip)) Reason for Fall: reports: unknown Loss of Consciousness: unsure Injury Associated Symptoms: reports: joint pain, muscle aches, unable to bear weight, trouble walking. denies: arm pain, back/neck pain, chest pain, diaphoresis, headaches, nausea, shortness of breath, vomiting, weakness Review of Systems - Adult - REVIEW OF SYSTEMS - ADULT Constitutional: denies: chills, fever, fatique, night sweats, weight gain, weight loss Eyes: reports: no symptoms reported Ears, Nose, Mouth & Throat: reports: no symptoms reported Cardiovascular: denies: chest pain, edema, irregular heart rate, palpitations, syncope Respiratory: denies: cough, dyspnea on exertion, excessive sputum production, shortness of breath, wheezing Gastrointestinal: reports: no symptoms reported Genitourinary: reports: no symptoms reported Musculoskeletal: reports: joint pain, joint swelling, muscle aches. denies: bone pain, back pain, frequent leg cramps, muscle weakness, neck pain Integumentary: reports: no symptoms reported Neurological: reports: no symptoms reported Psychiatric: reports: no symptoms reported Endocrine: reports: no symptoms reported Hematologic/Lymphatic: reports: no symptoms reported Allergic/Immunologic: reports: no symptoms reported All Other Systems: Reviewed and Negative Past History - Adult - PAST MEDICAL HISTORY-ADULT Review of Records: reports: Nursing Assessment Review, Medications Reviewed Endocrine/Immune: reports: Diabetes - IMMUNIZATION STATUS Childhood Immunizations: See Nurse Assessment Flu Vaccine: See Nurse Assessment - FAMILY HISTORY Family History: reviewed, not pertinent Physical Exam-Injury Related - Physical Exam-Injury Related Initial Vital Signs Reviewed: Yes General Appearance: appears well, alert, no apparent distress, other (demented) Eyes: PERRL/EOMI, pink conjunctivae Head, Ears, Nose, Mouth & Throat: moist mucous membranes, pharynx normal Respiratory: chest non-tender, lungs clear, normal breath sounds, no pleuratic chest pain, no respiratory distress, no accessory muscle use. negative: respiratory distress, decreased breath sounds, accessory muscle use, wheezing Cardiovascular: normal peripheral pulses, regular rate, rhythm. negative: bradycardia, tachycardia, irregularly irregular Extremity: no pedal edema, no calf tenderness, normal capillary refill, pelvis stable, tenderness (right hip tender to palpation). negative: normal range of motion, non-tender, normal gait, deformity, erythema, inflammation, swelling Psych/Mental Status: normal mood/affect, normal thought content, normal thought process, other (Pt is awake/alert, but is not oriented to person (pt says she is 41 years old)) Progress - PLAN OF CARE/RESULTS Progress/Plan/Lab Results: Vital Signs - 8 hr 10/01/16 21:07 Temperature 98.2 F Pulse Rate 95 H Respiratory Rate 16 Blood Pressure 139/72 O2 Sat by Pulse Oximetry 100 Laboratory Results - last 24 hr 10/01/16 10/01/16 10/01/16 21:22 21:22 21:22 WBC 8.55 RBC 3.91 L Hgb 10.5 L Hct 33.6 L MCV 85.9 MCH 26.9 L MCHC 31.3 L RDW Std Deviation 14.3 Plt Count 233 MPV 11.6 H Immature Gran % (Auto) 0.2 Neut % (Auto) 82.7 H Lymph % (Auto) 12.3 L [place] % (Auto) 3.9 Eos % (Auto) 0.7 Baso % (Auto) 0.2 Immature Gran # (Auto) 0.02 Neut # (Auto) 7.07 H Lymph # (Auto) 1.05 L [place] # (Auto) 0.33 Eos # (Auto) 0.06 Baso # (Auto) 0.02 PT 11.3 INR 1.07 PTT (Actin FS) 26.1 Sodium 141 Potassium 4.5 Chloride 101 Carbon Dioxide 29 Anion Gap 11 BUN 19 Creatinine 0.7 Estimated GFR/1.73 m2 > 60 BUN/Creatinine Ratio 27 Glucose 265 H Calculated Osmolality 293 Calcium 8.9 Total Bilirubin 0.25 AST 14 ALT 7 L Alkaline Phosphatase 99 Total Protein 6.9 Albumin 3.5 Globulin 3.4 Albumin/Globulin Ratio 1.0 Urine Source Urine Color Urine Turbidity Urine pH Ur Specific [place] Urine Protein Ur Glucose (Stick) Ur Ketones (Stick) Urine Blood Urine Nitrite Urine Bilirubin Urobilinogen Dipstick Urine Leukocytes Urine WBC (Auto) Urine RBC (Auto) U Epithel Cells (Auto) Urine Bacteria (Auto) 10/01/16 21:35 WBC RBC Hgb Hct MCV MCH MCHC RDW Std Deviation Plt Count MPV Immature Gran % (Auto) Neut % (Auto) Lymph % (Auto) [place] % (Auto) Eos % (Auto) Baso % (Auto) Immature Gran # (Auto) Neut # (Auto) Lymph # (Auto) [place] # (Auto) Eos # (Auto) Baso # (Auto) PT INR PTT (Actin FS) Sodium Potassium Chloride Carbon Dioxide Anion Gap BUN Creatinine Estimated GFR/1.73 m2 BUN/Creatinine Ratio Glucose Calculated Osmolality Calcium Total Bilirubin AST ALT Alkaline Phosphatase Total Protein Albumin Globulin Albumin/Globulin Ratio Urine Source CATH Urine Color YELLOW Urine Turbidity CLEAR Urine pH 6.0 Ur Specific [place] > 1.030 Urine Protein 100 A Ur Glucose (Stick) 200 A Ur Ketones (Stick) 10 A Urine Blood MODERATE A Urine Nitrite POSITIVE A Urine Bilirubin NEGATIVE Urobilinogen Dipstick NORMAL Urine Leukocytes TRACE A Urine WBC (Auto) TNTC A Urine RBC (Auto) TNTC A U Epithel Cells (Auto) <10 Urine Bacteria (Auto) 4+ Orders Category Date Time Status Sen Cath Insertion ORDERED Care 10/01/16 21:26 Active CHEST-1 VIEW [RAD] Stat Exams 10/01/16 21:16 Completed PELVIS W/O CONTRAST [CT] Stat Exams 10/01/16 22:24 Taken XRAY PELVIS W/HIP 2-3VW RT [RAD] Stat Exams 10/01/16 21:56 Taken CBC WITH DIFF [HEME] Stat Lab 10/01/16 21:22 Completed COMPREHENSIVE METABOLIC PANEL [CHEM] Stat Lab 10/01/16 21:22 Completed PROTIME WITH INR [COAG] Stat Lab 10/01/16 21:22 Completed PTT [COAG] Stat Lab 10/01/16 21:22 Completed URINALYSIS [URINALYSIS] Stat Lab 10/01/16 21:35 Completed Hydromorphone [Dilaudid] Med 10/01/16 21:18 Discontinued 0.5 mg IV NOW ONE Ondansetron [Zofran] Med 10/01/16 21:18 Discontinued 8 mg IV NOW ONE EKG [EKG] Stat Ther 10/01/16 21:16 Ordered Result Diagrams: 10/01/16 21:22 10/01/16 21:22 - EKG 1 Time of EKG reading by physician:: 22:32 EKG Read and Signed by:: Nickolas Moncada EKG Interpretation (*Must complete 3 of following elements*): Abnormal (Septal infarct, age undetermined) Rate: 87 Rhythm: NSR - XRAY 1 XRAY: Bilateral XRAY Study: Chest Impression: See EMR Report XRAY Interpretation: No acute disease or change from prior - Dr. Christian ( Radiologist) 2 XRAY: Bilateral XRAY Study: Pelvis, Hip Impression: See EMR Report XRAY Interpretation: Possible right intertrochanteric fx - Dr. Moncada - CT/MRI 1 CT Study: Pelvis Impression: See EMR Report (Acute intertrochanteric fx to the right hip; Partially healed left hip fx with orthapedic fixation - Dr. Stacy (Radiologist)) CT Results: See report - CONSULTS/PCP/HOSPITALIST Notification #1 *Consult/PCP/Hospitalist*: [place] Time Discussed: 23:06 Consult Disposition: Will see in ED, Admit Departure - Departure Date of Disposition Decision: 10/01/16 Time of Disposition Decision: 23:06 DIAGNOSIS: Intertrochanteric fracture of right hip Disposition: ADMITTED INPATIENT 09 Certified Medical Emergency: Emergent Condition: Good Referrals and Follow-Ups: None,PCP [Primary Care Provider] - - Critical Care Note This patient required my direct & personal management of CC.: No This chart was documented by the indicated scribe, (Charles Mays Scribe) and accurately reflects the services I performed and decisions made by me, Nickolas Moncada MD, as attested by the provider's signature.
[2016-10-02] MEDS ORDERED: MILK OF MAGNESIA PO PRN ×2 (00:42→14:24)
[2016-10-02] MEDS ORDERED: DURAGESIC 12 MICROGM/HR PATCH TD SCH (00:42)
[2016-10-02] MEDS ORDERED: ZOFRAN IV PRN ×2 (00:42→14:24)
[2016-10-02] MEDS ORDERED: MORPHINE IV PRN (00:42)
[2016-10-02] MEDS ORDERED: TYLENOL PO PRN (00:42)
[2016-10-02] MEDS: NS 1,000 ML IV SCH ×3 (01:35→22:41)
--- NOTE | 2016-10-02 04:45 | HISTORY AND PHYSICAL ---
PRIMARY CARE PROVIDER: [facility] REASON FOR ADMISSION: Right hip pain. HISTORY OF PRESENT ILLNESS: Ms. Darleen Pierce is an 81-year-old lady with past medical history of severe dementia and at the behavioral unit at [facility]. Up until today, she was under the care of hospice simultaneously for her severe dementia with behavioral problems. She also has a history of type 2 diabetes and vitamin D deficiency and PE. The patient is unable to give any history because she is currently heavily sedated at this point in time, and her daughter is at bedside. Daughter informs me that her mother got out of the wheelchair and tripped over her blanket and was unable to get up. They brought her in on account of their concern that she may have hurt herself. There is no report that she hit her head in the process or lost consciousness, however. REVIEW OF SYSTEMS: Could not be ascertained for obvious reasons because the patient is heavily sedated but the daughter does report she has a longstanding history of constipation but no cardiorespiratory symptoms. ALLERGIES: Codeine, Aricept, quinolones, latex rubber, metformin and sulfur. HOME MEDICATION LIST: Tylenol 1000 mg q.8 hours, vitamin C 250 mg daily, beclomethasone inhaler 1 puff b.i.d., Dulcolax suppository 20 mg daily, Depakote 375 mg at bedtime, Colace 100 mg daily, fentanyl 12 mcg q.72 hours, ferrous sulfate 325 mg daily, glipizide 20 mg b.i.d., Icar-C 1 tab daily, Lorazepam 0.25 mg t.i.d., Amitiza 25 mcg b.i.d., milk of magnesia 30 mL p.r.n., melatonin 5 mg at bedtime, Zyprexa 2.5 mg daily, omeprazole 40 mg daily, oxycodone 5 mg q.6 hours. FAMILY HISTORY: Notable for hypertension, heart disease and type 2 diabetes. SURGICAL HISTORY: Hysterectomy, C-spine surgery, left hip surgery and breast biopsies. SOCIAL HISTORY: Never smoked or drank. DIAGNOSTIC DATA: EKG showed Q-waves in V1 and V2. Normal sinus rhythm. Heart rate 87. White count 8000, hemoglobin 10 and hematocrit 30, platelets 233,000. BUN is 19, creatinine 0.7, glucose 265. PTT is normal. Urinalysis shows 4+ bacteria and too numerous to count white cells, positive nitrates. Specific gravity greater than 1.030. A pelvis CT confirmed said right hip fracture near the neck of the femur. Chest film showed no acute disease. PHYSICAL EXAMINATION: VITAL SIGNS: Blood pressure is 139/72, heart rate 95, respirations 16, temperature is 98.2 degrees, 100% on room air. GENERAL: Frail, thin, elderly, woman, who is heavily sedated. HEENT: Head is normocephalic, atraumatic. Eyes are anicteric. Mildly pale. Miotic pupils but reactive. ENT and oropharynx exam is grossly normal. No central cyanosis. NECK: Supple. No JVD or carotid bruit. No thyromegaly. She does have decreased skin turgor. CHEST: Decreased air entry in both lung stafford. No wheezes. CARDIOVASCULAR: First and second heart sounds heard. No gallops, murmurs, rubs. Rhythm is regular. ABDOMEN: Scaphoid, soft, nontender. No masses or organomegaly. Bowel sounds are hypoactive. RECTAL: Deferred at this time. EXTREMITIES: The patient has a slightly shortened right leg and externally rotated lower extremity. Pulses distally intact in all extremities and are all symmetrical. NEUROLOGICAL: Could not be fully assessed but when sternal rub was applied, she moves her arms and her legs transiently. The skin is intact otherwise. MUSCULOSKELETAL: See above. ASSESSMENT: 1. Right hip fracture. 2. Severe dementia with behavioral disorder. 3. Type 2 diabetes. 4. Pyuria. 5. Anemia of chronic inflammation. PLAN: At this time, Orthopedics was notified and we will keep patient NPO. Treat patient symptomatically as regarding her pain, bowel management, nausea. Follow her labs in the a.m. I spoke with the daughter and she informed me that her mother is a DNR level 1. I also informed her that the patient's prognosis is guarded at best. She has a 25% 1 year mortality, which in her case is probably higher due to the fact she just had a recent hip surgery a few months ago. Regarding her diabetes, will have Accu-Cheks and cover with sliding scale. cc: Augustine Hoffman MD
[2016-10-02 05:21] LABS: HEMATOCRIT 29.5 % (37.0-47.0); HEMOGLOBIN 9.1 g/dL (12.0-16.0); MCH 27.2 PG (27-31); MCHC 30.8 g/dL (33-37); MCV 88.3 FL (81-99); MPV 11.1 FL (7.4-10.4); RBC 3.34 XMIL (4.2-5.4)
[2016-10-02 05:44] LABS: AGAP 7; BUN 19 mg/dL (8-22); CALCIUM 8.4 mg/dL (8.8-10.2); CHLORIDE 104 mmol/L (98-107); COSMO 292; SODIUM 141 mmol/L (136-145); TCO2 30 mmol/L (25-35)
[2016-10-02] MEDS: HUMALOG SUBQ SCH ×4 (05:49→18:00)
[2016-10-02] MEDS ORDERED: KEFZOL 1 GM/D5W 1 GM/50 ML IVPB IV ONE (09:02)
--- NOTE | 2016-10-02 09:31 | Diag Imaging Result Doc PS360 ---
PELVIS W/O CONTRAST - 10/01/2016 INDICATION: R hip pain TECHNIQUE: A CT dose reduction protocol was used. COMPARISON: X-rays from earlier FINDINGS: There is an acute, comminuted, intertrochanteric right proximal femur fracture. No distal femur fractures. There is a left femoral neck stabilization edel. There is a partially healed intertrochanteric fracture of the left proximal femur as well. There is advanced degeneration throughout the sacroiliac joints. No pelvis fractures. IMPRESSION: Acute comminuted intertrochanteric right proximal femur fracture. Electronically signed by Jose Martin Christian 10/02/2016 9:29 AM
--- NOTE | 2016-10-02 09:32 | Diag Imaging Result Doc PS360 ---
XRAY PELVIS W/HIP 2-3VW RT - 10/01/2016 INDICATION: fall TECHNIQUE: Three views COMPARISON: 08/03/2016 FINDINGS: There is an acute, comminuted, intertrochanteric right proximal femur fracture. There is a left femoral neck stabilization edel in good position. No definite pelvis fractures. No dislocations. IMPRESSION: Acute comminuted right proximal intertrochanteric femur fracture. Electronically signed by Jose Martin Christian 10/02/2016 9:30 AM
--- NOTE | 2016-10-02 11:26 | PROGRESS NOTE ---
DATE: 10/02/2016 SUBJECTIVE: Ms. Pierce was admitted last night per Dr. Hoffman for right hip pain. An 81-year- old lady with past medical history of severe dementia who was in the behavior unit at [facility] and was care of hospice simultaneously for severe dementia and behavior problems. She has also had a history of type 2 diabetes mellitus vitamin D deficiency and pulmonary emboli. Patient unable to give history because she is very sedated but daughter informs me her mother got out of the wheelchair, tripped over a blanket and unable to get up and they brought her here. ALLERGIES: Codeine, Aricept, quinolones, latex rubber, metformin, sulfa. PAST SURGICAL HISTORY: He has had a hysterectomy, C-spine surgery, left hip surgery and breast biopsies. OBJECTIVE: CT scan showed a right hip fracture near the neck of the femur. She appears comfortable this morning. She is oriented to person, but otherwise I do not think she knows where she is or what is going on. She has an acute comminuted intertrochanteric right proximal femur fracture. I think the plan is to repair it today. ASSESSMENT AND PLAN: 1. Right hip fracture for open reduction and internal fixation today. 2. Severe dementia. Aware. 3. Diabetes mellitus type 2. We will follow sugars. 4. She had some pyuria and I believe she is on antibiotics. 5. Chronic acute anemia of chronic inflammation. REVIEW OF ORDERS: She got some cefazolin. Looking at the urine she had too numerous to count white blood cells. I think I am going to go ahead and treat her for her urinary sediment. She got cefazolin 1 g. I am going to go ahead and give her Rocephin 1 g IV now and q 24 hours. cc: Frank Tran MD
[2016-10-02] MEDS ORDERED: KEFZOL 1 GM/D5W 1 GM/50 ML IVPB ONE (11:36)
[2016-10-02] MEDS ORDERED: SODIUM CHLORIDE 0.9% 20 ML ONE (11:38)
[2016-10-02] MEDS ORDERED: XYLOCAINE-MPF 2% ONE (11:38)
[2016-10-02] MEDS ORDERED: NEO-SYNEPHRINE ONE (11:38)
[2016-10-02] MEDS ORDERED: DIPRIVAN 1% ONE (11:41)
[2016-10-02] MEDS ORDERED: NEOSPORIN G.U. IRRIGANT ONE (12:18)
[2016-10-02] MEDS: AMITIZA PO SCH ×2 (12:56→22:46)
[2016-10-02] MEDS: PRILOSEC PO SCH (12:58)
[2016-10-02] MEDS: DULCOLAX PO SCH ×2 (12:58→22:45)
[2016-10-02] MEDS: ICAR-C PO SCH (12:58)
--- NOTE | 2016-10-02 13:53 | CONSULTATION ---
DATE OF CONSULTATION: 10/02/2016 CHIEF COMPLAINT: Right hip injury. HISTORY OF PRESENT ILLNESS: Darleen Pierce is an 81-year-old female who fell and injured her right hip. She complains of right hip pain, deformity, and inability to ambulate. Past medical history, past surgical history, medications allergies - see admission history and physical. PHYSICAL EXAMINATION: She is a well-developed, well-nourished female. She is alert, oriented, and cooperative. She has pain with any range of motion of her right leg. Her leg is otherwise neurovascularly intact. It is shortened and externally rotated. ASSESSMENT: Right intertrochanteric hip fracture. PLAN: Proceeding with a right trochanteric fixation nail placement. I have discussed with her the risks, benefits, and alternatives, including but not limited to bleeding, nerve damage, infection, risk from anesthesia, hardware failure, malunion, nonunion, up to and including loss of limb, life, and other imponderables. She voices understanding with her family and requests we proceed as planned. We will schedule surgery as soon as possible. I have discussed this with her family over the phone. cc: Silvano Churchill MD
--- NOTE | 2016-10-02 14:18 | OPERATIVE NOTE ---
PROCEDURE DATE: 10/02/2016 PREOPERATIVE DIAGNOSIS: Right intertrochanteric hip fracture. POSTOPERATIVE DIAGNOSIS: Right intertrochanteric hip fracture. PROCEDURE PERFORMED: Right long trochanteric fixation nail with a size 360 mm long trochanteric fixation nail with a 85 mm helical blade and a 44 and a 50 mm distal locking screws. ANESTHESIA: Spinal. SURGEON: Silvano Churchill MD. PATIENT SCHEDULING COORDINATOR: Faheem. COMPLICATIONS: None. BLOOD LOSS: Minimal. DESCRIPTION OF PROCEDURE: The patient was brought to the operative suite and placed in supine position. After successful administration of spinal anesthesia, patient placed on the OSI table in the usual position for right hip. The right hip was then prepped and draped in the usual sterile fashion. A longitudinal incision was made proximal to the greater trochanter and a guide pin was placed in the center of the femoral canal on the AP and lateral images. It was reamed with a solid cannulated reamer. Then a ball-tipped guidepin was buried in the distal metaphysis. Proper length nail of 360 mm was measured and driven into place. Then the ball-tipped guidewire was removed. Using the proximal guide through a stab incision laterally a guide pin was placed in the center of the femoral head on the AP and lateral images. It was measured to 85 mm. The track of the helical blade was reamed and then the helical blade was driven into place and locked proximally. The proximal guide was then removed. X-rays showed excellent reduction of fracture and excellent placement of the hardware. Attention was then directed to the distal locking screws. Using the perfect circles technique through stab incisions these were drilled and proper length screws of 44 and 50 mL were driven into place. Excellent placement of screws was obtained on AP and lateral images. The wounds were copiously irrigated. Skin edges approximated with 2-0 Vicryl. Skin was closed with skin jaye and a sterile dressing was applied. The patient tolerated the procedure well without complication. At the end the procedure, all counts correct x2. The patient was transferred to the recovery room in stable condition. cc: Silvano Churchill MD
[2016-10-02] MEDS ORDERED: HALDOL IV PRN (14:24)
[2016-10-02] MEDS: ROCEPHIN 1 GM/NS 1 GM/50 ML IVPB IV SCH ×2 (18:00→18:03)
[2016-10-02] MEDS: TYLENOL PO SCH ×2 (18:00→22:46)
[2016-10-02] MEDS: KEFZOL 1 GM/D5W 1 GM/50 ML IVPB IV SCH (20:15)
[2016-10-02] MEDS: MELATONIN PO SCH (22:45)
[2016-10-02] MEDS: PERIDEX MT SCH (22:45)
[2016-10-02] MEDS: COLACE PO SCH (22:46)
[2016-10-03] MEDS: KEFZOL 1 GM/D5W 1 GM/50 ML IVPB IV SCH ×2 (03:56→11:17)
[2016-10-03] MEDS: MORPHINE IV PRN ×3 (05:00→11:17)
[2016-10-03 05:43] LABS: MANUAL DIFF NEEDED? NO
[2016-10-03 05:59] LABS: BASO% 0.5 % (0.0-0.8); EOS# 0.01 X1000 (0.0-0.7); EOS% 0.2 % (0.0-10.0); HEMATOCRIT 26.3 % (37.0-47.0); HEMOGLOBIN 7.9 g/dL (12.0-16.0); IMM GRAN# 0.02 X1000 (0.0-0.04); IMM GRAN% 0.3 % (0.0-0.5); LYMPH# 1.94 X1000 (1.2-3.4); MCH 26.2 PG (27-31); MCV 87.4 FL (81-99); MONO# 0.91 X1000 (0.11-0.59); MONO% 15.5 % (1.7-9.3); MPV 11.5 FL (7.4-10.4); NEUT% 50.5 % (42.2-75.2); PLT 168 X1000 (130-400); RBC 3.01 XMIL (4.2-5.4)
[2016-10-03 06:13] LABS: AGAP 10; ALBUMIN 2.9 g/dL (3.5-5.0); ALKALINE PHOSPHATASE 80 U/L (32-104); BUN 17 mg/dL (8-22); CALCIUM 8.2 mg/dL (8.8-10.2); CHLORIDE 104 mmol/L (98-107); COSMO 292; GOT 13 U/L (10-30); GPT 11 U/L (10-36); MAGNESIUM 1.6 mg/dL (1.5-2.7); POTASSIUM 4.6 mmol/L (3.5-5.1); SODIUM 143 mmol/L (136-145); TCO2 29 mmol/L (25-35); TOTAL BILIRUBIN 0.31 mg/dL (0.20-1.00); TOTAL PROTEIN 5.2 g/dL (6.3-8.3)
[2016-10-03] MEDS: HUMALOG SUBQ SCH ×3 (06:20→16:49)
[2016-10-03] MEDS: TYLENOL PO SCH ×3 (06:21→22:57)
[2016-10-03] MEDS: NS 1,000 ML IV SCH ×2 (07:38→16:49)
[2016-10-03] MEDS ORDERED: FERROUS SULFATE PO SCH (08:00)
[2016-10-03] MEDS: AMITIZA PO SCH (08:13)
[2016-10-03] MEDS: PERIDEX MT SCH ×2 (08:14→22:57)
[2016-10-03] MEDS: ICAR-C PO SCH (08:14)
[2016-10-03] MEDS: PRILOSEC PO SCH (08:14)
[2016-10-03] MEDS: DULCOLAX PO SCH ×2 (08:14→22:56)
--- NOTE | 2016-10-03 09:51 | PROGRESS NOTE ---
DATE: 10/03/2016 SUBJECTIVE: Darleen Pierce is an 81-year-old female who is postoperative day 1 from a right trochanteric fixation nail placement. She has no new complaints. OBJECTIVE: She is a well-developed, well-nourished female. She is alert, oriented, and cooperative with the exam. Her vital signs are stable. She is afebrile. Her dressings are clean, dry, and intact. Her hematocrit is 26.3%. Her hemoglobin is 7.8. ASSESSMENT: Stable right hip after trochanteric fixation nail placement. PLAN: We will continue working on physical therapy for weightbearing as tolerated. She can be transferred to rehab the 1st of the week. cc: Silvano Churchill MD
--- NOTE | 2016-10-03 14:29 | PROGRESS NOTE ---
DATE: 10/03/2016 SUBJECTIVE: Ms. Pierce was sitting up in chair. She had feet elevated, she feels good, doing well. Did have some pain yesterday and some muscle spasm. OBJECTIVE: Vital signs: Temperature 98.5 degrees, pulse 88, respirations 14, blood pressure 107/66. HEENT: Pupils are equal, round. Lungs: Are clear in all lung stafford. Cardiovascular: Regular rhythm and rate without murmur or S3. Abdomen: Soft. Skin: Is warm and dry. Urine output 1500 mL. LAB: Review from today white count 5880, hematocrit 26, platelet count 168,000. Sodium 143, potassium 4.6, chloride 104, bicarb 29, BUN 17, creatinine 0.6, blood sugars 138, 194, 254. ASSESSMENT AND PLAN: 1. Stable right hip after trochanteric fixation nail placement doing well. She would like to go home with home physical therapy. Continue physical therapy here, weightbearing. 2. Diabetes mellitus type 2. Blood sugars well controlled. 3. She did have sediment in the urine so we did give her some antibiotics, do not know that she had a definite symptomatic urinary tract infection. 4. Acute blood loss anemia. Watch her hematocrit and blood count. Looking back at her past medical history apparently she does have severe dementia, she is having some persistent owning, a lot of confusion so will see if we can get the change up some of her pain medications. cc: Frank Tran MD
[2016-10-03] MEDS: OXY IR PO PRN ×2 (16:41→22:58)
[2016-10-03] MEDS: ROCEPHIN 1 GM/NS 1 GM/50 ML IVPB IV SCH (16:42)
[2016-10-03] MEDS: LOVENOX SUBQ SCH (22:55)
[2016-10-03] MEDS: COLACE PO SCH (22:56)
[2016-10-03] MEDS: MELATONIN PO SCH (22:56)
[2016-10-04] MEDS: OXY IR PO PRN ×3 (04:59→17:16)
[2016-10-04] MEDS: TYLENOL PO SCH ×2 (06:11→15:30)
[2016-10-04] MEDS: HUMALOG SUBQ SCH ×3 (06:13→18:51)
[2016-10-04 06:23] LABS: HEMOGLOBIN 6.9 g/dL (12.0-16.0)
[2016-10-04 07:19] LABS: HEMATOCRIT 22.7 % (37.0-47.0)
--- NOTE | 2016-10-04 07:41 | EKG Report ---
Test Performed on : 10/01/2016 10:21:52 PM Test Reason : pre-op Blood Pressure : / mmHG Vent. Rate : 087 BPM Atrial Rate : 087 BPM P-R Int : 146 ms QRS Dur : 068 ms QT Int : 352 ms P-R-T Axes : 082 -09 090 degrees QTc Int : 423 ms Normal sinus rhythm. Septal infarct (cited on or before 03-AUG-2016) Abnormal ECG When compared with ECG of 03-AUG-2016 05:39, premature supraventricular complexes. are no longer present T wave inversion no longer evident in Inferior leads Unconfirmed Result
[2016-10-04] MEDS: NS 1,000 ML IV SCH ×2 (07:48→12:09)
[2016-10-04] MEDS: ICAR-C PO SCH (08:49)
[2016-10-04] MEDS: DULCOLAX PO SCH (08:50)
[2016-10-04] MEDS: PERIDEX MT SCH (10:50)
[2016-10-04] MEDS: PRILOSEC PO SCH (10:51)
--- NOTE | 2016-10-04 13:23 | PROGRESS NOTE ---
DATE: 10/04/2016 SUBJECTIVE: Ms. Pierce is very pleasant, but she has really refused her medicine. Has not eaten much. she does not appear uncomfortable, breathing comfortably. OBJECTIVE: Vital Signs: Remains afebrile. Temperature 97.8 degrees, pulse 90, respirations 14, blood pressure 103/52. Neck: CVP less than 6 cm. Lungs: Clear in all lung stafford. Cardiovascular: Regular rhythm and rate without murmur or S3. Abdomen: Soft. Skin: Warm and dry. Genitourinary: Urine output was 1900 mL. LABORATORY DATA: Hemoglobin was 6.9, hematocrit 22. She has dropped a little bit. Chemistries reviewed from the from yesterday. Creatinine was 0.6. Blood sugars 116, 200, 197. ASSESSMENT AND PLAN: 1. Stable right hip after trochanteric fixation placement. Really not able to cooperate. Continue to encourage physical therapy and try and encourage p.o. intake. 2. Acute blood-loss anemia. She probably would benefit from some blood. I will give her 2 units packed red blood cells if okay. 3. Diabetes mellitus type 2. Sugars under fair control. Continue to watch pattern sugars. 4. Severe dementia. She is pleasant. I am not sure how cooperative and how much benefit she is going to derive from physical therapy. 5. Review of her orders. For her urinary tract infection think we can stop the ceftriaxone. I may stop the melatonin as well. She still has significant owning, and see if we can get back to the [facility] tomorrow. I am giving her some iron. I am not sure a transfusion is warranted at this point. We will discuss with the team. cc: Frank Tran MD
--- NOTE | 2016-10-04 17:47 | PROGRESS NOTE ---
DATE: 10/04/2016 SUBJECTIVE: Ms Pierce is a 81-year-old female who is postoperative day 2 from a right trochanteric fixation nail placement. She has no new complaints. OBJECTIVE: She is a well-developed, well-nourished female. She is alert, oriented, and cooperative with the exam. Her vital signs are stable. She is afebrile. Her dressings are clean, dry, and intact. Her hemoglobin is 6.9, her hematocrit is 22.7. ASSESSMENT: Stable right hip after trochanteric fixation nail placement and anemia. PLAN: We are going to transfuse 2 units of packed red blood cells to improve her anemia and we will continue working on physical therapy for weightbearing as tolerated. She can be transferred to rehab once she is medically stable. Dictated by MARIA DEL CARMEN Campbell for Silvano Churchill MD cc: MARIA DEL CARMEN Campbell MD MTDD
[2016-10-04] MEDS: LOVENOX SUBQ SCH (21:00)
[2016-10-05] MEDS: NS 1,000 ML IV SCH ×3 (06:18→14:18)
[2016-10-05] MEDS: TYLENOL PO SCH ×2 (06:49→06:50)
[2016-10-05] MEDS: PERIDEX MT SCH ×2 (06:51→10:20)
[2016-10-05] MEDS: COLACE PO SCH (06:51)
[2016-10-05] MEDS: DULCOLAX PO SCH ×2 (06:51→10:12)
[2016-10-05] MEDS: HUMALOG SUBQ SCH ×2 (06:53→14:17)
--- NOTE | 2016-10-05 09:22 | PROGRESS NOTE ---
DATE: 10/05/2016 SUBJECTIVE: Darleen Pierce is an 81-year-old female who is postoperative day 3 from a right TFN. She has no complaints other than being cold. OBJECTIVE: General: She is a well-developed, well-nourished female. She is cooperative with exam. Extremities: Exam of her leg reveals the wounds are healing nicely. There is no sign of infection. There is no drainage. Her leg is neurovascularly intact. There is no sign of DVT. ASSESSMENT: Stable right trochanteric fixation nail. PLAN: She can be transferred back to rehab when cleared medically. She will be weightbearing as tolerated to her right lower extremity. She can have her jaye removed in 10 days. She can return to see me in 1 month. I will be available to see her as needed. cc: Silvano Churchill MD
[2016-10-05] MEDS: ICAR-C PO SCH (10:12)
[2016-10-05] MEDS: PRILOSEC PO SCH (10:19)
[2016-10-05] MEDS ORDERED: BLISTEX MEDICATED BERRY LIP BALM TOP PRN (10:25)
[2016-10-05] MEDS: OXY IR PO PRN ×2 (10:42→14:23)
[2016-10-05 10:49] LABS: HEMATOCRIT 31.3 % (37.0-47.0); HEMOGLOBIN 10.2 g/dL (12.0-16.0)
[2016-10-05 12:05] VITALS: BP 134/58
--- NOTE | 2016-10-05 12:23 | DISCHARGE SUMMARY ---
ADMISSION DATE: 10/02/2016 DISCHARGE DATE: 10/05/2016 ADMISSION DIAGNOSES: 1. Right hip fracture. 2. Severe dementia with behavioral disorder. 3. Diabetes mellitus, type 2. 4. Pyuria. 5. Anemia of chronic inflammation. 6. Do Not Resuscitate level 1. DISCHARGE DIAGNOSES: 1. Right hip fracture, now status post stable right trochanteric fixation with nail. 2. Severe dementia with behavioral disorder. 3. Diabetes mellitus, type 2. 4. Pyuria. Received 2 days of antibiotics. White count is normal. She is afebrile. 5. Anemia of chronic inflammation. Two units of blood transfused during stay due to acute blood loss anemia post surgery. 6. Urinary tract infection. See diagnosis of pyuria on admission. Again, received ceftriaxone, but this was stopped. CONSULTATIONS: Dr. Churchill. OPERATIONS, SURGERIES AND PROCEDURES: On 10/02/2016, performed by Dr. Churchill, right intertrochanteric hip fracture with right long trochanteric fixation nail. Minimal blood loss. No surgical complications noted. HOSPITAL COURSE: Ms. Darleen Pierce is an 81-year-old female with a medical history of severe dementia who resides at the behavioral unit at [facility]. Apparently, up until admission, she was under the care of hospice simultaneously for her severe dementia and behavioral problems. She remained a DNR level 1 during her stay. Also has a history of diabetes mellitus, type 2, vitamin D deficiency, and pulmonary emboli. Given the severe dementia of the patient, information was obtained through the daughter, who was at the bedside on admit. The daughter describes the event as her mother being in a wheelchair, got out of the wheelchair, and tripped over her blanket. At that time, was unable to get up. There was no loss of consciousness or hitting of her head. The pelvis CT showed an acute comminuted right proximal intertrochanteric femur fracture. She does have a history of chronic anemia, but secondary to acute blood loss anemia postoperatively, she did receive a total of 2 units of packed red blood cells fir hemoglobin and hematocrit of 6.9 and 22. Repeat is now at 10 and 31. All other labs remain stable. She presented with a urinary tract infection, culture not obtained, but received Rocephin for 2 days. White blood cells remained normal and she remained afebrile. Her vital signs are stable. Her lab work is stable. Per Orthopedics and from a medical standpoint, she is stable for discharge to [facility] in [place]. DISCHARGE VITAL SIGNS: Temperature 98.1 degrees, heart rate 76, respiratory rate 20, blood pressure 138/75, saturation 98% on room air. DISCHARGE MEDICATIONS: Tylenol 1000 mg p.o. every 8 hours p.r.n., vitamin C 250 mg p.o. daily, QVAR inhaled 1 puff by Respiratory Therapy twice daily, Bisacodyl 20 mg nightly, Depakote 375 mg p.o. nightly, Colace 20 mg p.o. daily, fentanyl patch transdermal every 72 hours, ferrous sulfate 325 mg p.o. daily, glipizide 20 mg p.o. twice daily, Ativan 0.25 mg p.o. 3 times daily, Amitiza 24 mcg p.o. twice daily, milk of magnesia 30 mL p.r.n., melatonin may or may not be resumed, Zyprexa 2.5 mg p.o. nightly, Prilosec 40 mg p.o. daily. Was on oxycodone 5 mg p.o. every 6 hours p.r.n. and will likely need to be started on Xarelto for DVT prophylaxis. DISCHARGE DIET: She has been on a full liquid diet with Ensure. DISCHARGE ACTIVITY: Wheelchair. DISCHARGE DISPOSITION: [facility] skilled nursing. DISCHARGE INSTRUCTIONS: As per Dr. Churchill, will be weightbearing as tolerated to her right lower extremity. She can have her jaye removed in 10 days and return to see Dr. Churchill in 1 month or as needed. Dictated by RHIANNON Ray for Frank Tran MD cc: RHIANNON Ray MD
== END 2016-10-05 14:36 ==
LOC: ED 21:02 → SUATTDRO 10-02 00:27 → 4N 10-02 00:27
PROVIDERS: ATTEND Emergency Medicine